=== PATIENT | male | born 1970 | race Caucasian/White ===

== ENCOUNTER 2017-10-30 08:41 | Outpatient (CLI) | payer OTHER ==
[2017-10-30] MEDS ORDERED: Iopamidol 370 76% 100 ML VIAL ONE (15:46)
== END 2017-10-30 08:42 | disposition home or self-care (01) ==
LOC: BICCT 08:41
PROVIDERS: ATTEND Urology
DX: C64.9 Malignant neoplasm of unspecified kidney, except renal pelvis (principal)
CPT/HCPCS: 74178

== ENCOUNTER 2017-12-08 07:40 | Outpatient (CLI) | payer OTHER ==
[2017-12-08 08:58] LABS: Anion Gap 10 mmol/L (10-20); BUN (Urea Nitrogen) 14 mg/dL (8.9-20.6); Calc. Creatinine Clearance 0 mL/min (70-130); Carbon Dioxide 30 mmol/L (22-29); Chloride 103 mmol/L (98-107); Estimated GFR-MDRD 84; Glucose 131 mg/dL (70-105); Potassium 4.2 mmol/L (3.5-5.1); Sodium 139 mmol/L (136-145)
--- NOTE | 2017-12-08 10:21 | CT ---
CT CHEST WITH IV CONTRAST: HISTORY: Kidney cancer. Lung nodule. COMPARISON: 10/27/16. FINDINGS: The tiny hazy nodule at the lateral aspect of the left upper lobe inferiorly is less visible than on the prior exam. Old healing fracture of the lateral aspect of the left 8th rib is unchanged in appea sp. No new lung lesions are apparent. No pleural fluid or pneumothorax. Nonenlarged lymph nodes about the mediastinum are stable. Inferior-most images show hemostasis clips in the left retroperit oneum. IMPRESSION: Stable CT findings of the chest. Not suggestive of metastatic disease. No new abnormalities are dem onstrated. POS: [facility]
--- NOTE | 2017-12-08 14:05 | NM ---
WHOLE BODY BONE SCAN: CLINICAL HISTORY: Malignant neoplasm of left kidney and extrarenal pelvis. COMPARISON: Reference is made to 10/27/16. FINDINGS: Redemonstration of focus of increased scintigraphic activity localizing to the left infralateral ches t wall. No new suspicious scintigraphic abnormalities are seen. There is scattered degenerative lópez nge of the axial and appendicular skeleton. Absence of activity of the left renal region is noted. IMPRESSION: Stable bone scan, with persistent area of increased radiotracer activity at the inferolateral left ch est wall. POS: [facility]
== END 2017-12-08 07:41 | disposition home or self-care (01) ==
LOC: CT 07:40
PROVIDERS: ATTEND Urology
DX: C64.2 Malignant neoplasm of left kidney, except renal pelvis (principal); E11.9 Type 2 diabetes mellitus without complications; R91.1 Solitary pulmonary nodule; Z87.448 Personal history of other diseases of urinary system
CPT/HCPCS: 71260; 78306; 80048; A9503

== ENCOUNTER 2018-05-25 09:35 | Outpatient (CLI) | payer OTHER ==
--- NOTE | 2018-05-25 11:43 | RAD ---
CHEST 2 VIEWS: Date: 05/25/18 HISTORY: Renal cell carcinoma. COMPARISON: 03/30/15. FINDINGS: Cardiac silhouette and pulmonary vasculature remain upper limits of normal. Mediastinum is midline. N o confluent air space consolidation, pneumothorax, or pleural fluid. IMPRESSION: No active cardiopulmonary abnormalities are demonstrated. POS: [facility]
== END 2018-05-25 09:36 | disposition home or self-care (01) ==
LOC: RAD 09:35
PROVIDERS: ATTEND Urology
DX: C64.2 Malignant neoplasm of left kidney, except renal pelvis (principal)
CPT/HCPCS: 71046

== ENCOUNTER 2018-11-26 09:36 | Outpatient (CLI) | payer OTHER, BC ==
--- NOTE | 2018-11-26 10:12 | RAD ---
CHEST TWO VIEWS: History: Cough. Comparison: 2017 FINDINGS: Lungs are clear. No pneumothorax or effusion. Cardiac silhouette and mediastinal contours are within normal limits. IMPRESSION: No acute intrathoracic abnormality. POS: [facility]
== END 2018-11-26 09:37 | disposition home or self-care (01) ==
LOC: RAD 09:36
PROVIDERS: ATTEND Urology
DX: Z12.5 Encounter for screening for malignant neoplasm of prostate (principal); C64.2 Malignant neoplasm of left kidney, except renal pelvis; E11.9 Type 2 diabetes mellitus without complications; R31.0 Gross hematuria
CPT/HCPCS: 71046

== ENCOUNTER 2018-12-31 13:30 | Outpatient (CLI) | payer BC ==
--- NOTE | 2018-12-31 15:51 | ULT ---
TESTICULAR ULTRASOUND WITH DOPPLER: HISTORY: Left-sided swelling x2 months. Hydrocele. COMPARISON: None. TECHNIQUE: [place]-scale, color-flow, and Doppler imaging with spectral wave-form analysis was performed of the lef t and right testicles. FINDINGS: RIGHT HEMISCROTUM: The right testicle has a homogeneous echotexture. No intratesticular mass. The right testicle measures 4 x 3.9 x 1.9 cm. The right epididymis has a normal echotexture, measuring 0 .8 x 0.6 cm. No significant hydrocele. LEFT HEMISCROTUM: The left testicle has a homogeneous echotexture. No intratesticular mass. The le ft testicle measures 3.6 x 5.2 x 2.1 cm. The left epididymis is not appreciated. There is a large l eft-sided hydrocele. TESTICULAR DOPPLER: There is vascular flow to both testicles, symmetric. IMPRESSION: Large left-sided hydrocele. POS: [facility]
== END 2018-12-31 13:31 | disposition home or self-care (01) ==
LOC: SCSULT 13:30
PROVIDERS: ATTEND Urology
DX: N43.3 Hydrocele, unspecified (principal)
CPT/HCPCS: 76870; 93976